=== PATIENT | male | born 1980 | race Caucasian/White ===

== ENCOUNTER 2016-11-09 03:43 | Inpatient (IN) | payer SELFPAY ==
[~2016-11-09] VITALS: Ht 180.3 cm; Wt 107.3 kg
[2016-11-09] MEDS ORDERED: METOCLOPRAMIDE INJ 10MG/2ML VIAL (J2765) IV ONE (06:30)
[2016-11-09] MEDS ORDERED: NS 1,000 ML IV ONE ×2 (06:30→11:00)
[2016-11-09] MEDS ORDERED: HYDROmorphone HCL 1 MG/ML SYRINGE (J1170) IV ONE (06:30)
[2016-11-09 07:30] LABS: ADD MANUAL DIFFER YES; MEAN CORPUSCULAR HEMOGLOBIN 31.3 pg (27.0-33.0); MEAN CORPUSCULAR HGB CONC 35.9 g/dl (32.0-36.5); MEAN CORPUSCULAR VOLUME 87.1 fl (80.0-96.0); PLATELET COUNT, AUTOMATED 208 k/mm3 (150-450); RED CELL DISTRIBUTION WIDTH 11.9 % (11.5-14.5); WHITE BLOOD COUNT 12.7 K/mm3 (4.0-10.0)
[2016-11-09] MEDS ORDERED: ISOVUE-370 76% 100ML VIAL (Q9967) As Ordered ONE (07:45)
[2016-11-09 07:54] LABS: BANDS 7 % (< 11)
[2016-11-09] MEDS ORDERED: GASTROGRAFIN SOLUTION 30ML PO ONE (08:00)
[2016-11-09] MEDS ORDERED: GASTROGRAFIN SOLUTION 30ML (Q9963) As Ordered ONE (08:00)
[2016-11-09 08:08] LABS: ALBUMIN 3.9 GM/DL (3.2-5.2); ALKALINE PHOSPHATASE 56 U/L (45-117); ALT/SGPT 40 U/L (12-78); AMYLASE 48 U/L (25-115); ANION GAP 9 MEQ/L (8-16); AST/SGOT 18 U/L (15-37); BILIRUBIN,DIRECT 0.2 MG/DL (0.0-0.2); BILIRUBIN,TOTAL 0.7 MG/DL (0.2-1.0); BLOOD UREA NITROGEN 12 MG/DL (7-18); CALCIUM LEVEL 8.3 MG/DL (8.5-10.1); CARBON DIOXIDE LEVEL 25 MEQ/L (21-32); CHLORIDE LEVEL 107 MEQ/L (98-107); GLOMERULAR FILTRATION RATE > 60.0 (>60); GLUCOSE, FASTING 108 MG/DL (70-105); POTASSIUM SERUM 4.3 MEQ/L (3.5-5.1); SODIUM LEVEL 141 MEQ/L (136-145); TOTAL PROTEIN 6.9 GM/DL (6.4-8.2)
[2016-11-09] MEDS ORDERED: GASTROGRAFIN SOLUTION 30ML (Q9963) PO ONE (08:30)
--- NOTE | 2016-11-09 10:09 | REP ---
Clinical: Acute abdominal pain. Technique: Axial contrast enhanced images from the lung bases to the pubic symphysis using oral and 100 ml Isovue 370 intravenous contrast material with coronal and sagittal re-formations. Findings: Lung bases are clear. Visualized heart and pericardium normal. Liver, spleen, pancreas, gallbladder, bilateral adrenal glands and kidneys are normal. The enteric system is without obstruction or acute inflammatory process. Normal terminal ileum and appendix identified in the right lower quadrant pelvis demonstrates sigmoid diverticula without acute diverticulitis, normal bladder and age appropriate prostate/seminal vesicles. A minuscule amount of free fluid is identified in the left som pelvis of uncertain etiology. No free air. No adenopathy. No mass lesion. Vasculature is normal. Musculoskeletal structures are intact and without focal abnormality. Impression: 1. A minuscule amount of free fluid in the pelvis is nonspecific and of uncertain etiology. No further acute abdominopelvic pathology appreciated. 2. Scattered sigmoid diverticula without obvious acute diverticulitis. Signed by Rashi Cutler MD 11/09/2016 10:01 A
[2016-11-09] MEDS ORDERED: MORPHINE 4 MG/ML 1ML SYRINGE IV ONE (11:00)
[2016-11-09] MEDS ORDERED: metroNIDAZOLE 500 MG in APPROPRIATE DILUENT 1 EA IV ONE (11:45)
[2016-11-09] MEDS ORDERED: CIPROFLOXACIN 400 MG in APPROPRIATE DILUENT 1 EA IV ONE (11:45)
[2016-11-09] MEDS ORDERED: VANCOMYCIN ORAL SOL 250MG/5ML ORAL SYRINGE PO SCH (12:00)
[2016-11-09] MEDS ORDERED: ACETAMINOPHEN TAB 650MG DOSE (2X325MG) PO PRN (13:30)
[2016-11-09] MEDS ORDERED: MORPHINE 2 MG/ML 1ML SYRINGE IV PRN (13:30)
[2016-11-09] MEDS ORDERED: ONDANSETRON 4MG/2ML VIAL (J2405) IV PRN (13:30)
[2016-11-09] MEDS ORDERED: metroNIDAZOLE 500 MG in APPROPRIATE DILUENT 1 EA IV SCH (13:45)
[2016-11-09] MEDS: NS 1,000 ML IV SCH (14:00)
[2016-11-09 15:00] VITALS: BP 110/62
[2016-11-09] MEDS: VANCOMYCIN ORAL SOL 250MG/5ML ORAL SYRINGE PO SCH (17:18)
[2016-11-09] MEDS: LACTOBACILLUS ACIDOPHILUS CAP (BACID) PO SCH (17:18)
[2016-11-09] MEDS: PANTOPRAZOLE 40MG INJ (PROTONIX) (C9113) IV SCH (17:18)
--- NOTE | 2016-11-09 17:48 | HPE ---
DATE OF ADMISSION: 11/09/2016 PRIMARY CARE PROVIDER: None. HISTORY OF PRESENT ILLNESS: This patient is a 36-year-old male who presents to [facility] on 11/09/2016, with worsening abdominal pain. The patient stated since three days ago the pain start bilateral lower abdomen. It is sharp, aching, and he described the pain is more like "stomach full of gas." pain has been persistent and torso flexion makes the pain worse. Nothing makes it better. In the last three days, the patient's pain started to improve slowly. However, today around 3 a.m., while the patient was sleeping, there was acute sudden onset of similar pain recurring in the epigastric region with radiation to the whole abdomen. The pain has remained persistently sharp with migration to different part of abdomen. The patient also noted to have watery diarrhea for the past three days, on average he has been having 3-6 bowel movements every day. At the baseline, the patient has at most four bowel movements daily. Denies any blood in the stool. The patient did noted he had lightheadedness. Denies any chest pain or shortness of breath. Denies any new medication changes. PAST MEDICAL HISTORY: 1. History of mitral valve prolapse, resolved. 2. Hypercholesterolemia. 3. Herniated disc L3 to L5 resulting in chronic back pain. PAST SURGICAL HISTORY: Left ankle repair. ALLERGIES: None. HOME MEDICATIONS: None. SOCIAL HISTORY: The patient denies smoking tobacco, but he chews tobacco for the past two years. During the weekend, he drinks more than a six pack daily. During the weekdays, he drinks at the most one beer a day. Denies any recreational drug use currently, but seven years ago he had been trying different types of recreational drugs. REVIEW OF SYSTEMS: GENERAL: No fever, no chills. HEENT: No vision changes, no auditory changes. CARDIOVASCULAR: No chest pain, no palpitations. RESPIRATORY: No shortness of breath. No cough, no sputum production. GASTROINTESTINAL (GI): Positive abdominal pain started three days ago, sharp and achy. Has been persistent. Positive diarrhea with blood in the stool. Denied any nausea or vomiting. MUSCULOSKELETAL: Chronic herniated disc from L3 to L5. NEUROLOGIC: No numbness, no tingling. PHYSICAL EXAMINATION: VITAL SIGNS: Temperature is 98.2, pulse 55, respirations 18, blood pressure 127/65, pulse 99% on room air. GENERAL: No sign of acute distress. Fatigued, alert and oriented times three. HEENT: Normocephalic, atraumatic. Extraocular motor grossly intact. CARDIOVASCULAR: Positive S1, S2. Regular rate. LUNGS: Clear to auscultation bilaterally. ABDOMEN: Tenderness to palpitation in all abdominal quadrants, most significant in the epigastric region at the time of examination. Abdomen is soft. Bowel sounds present. EXTREMITIES: No edema. No sign of cyanosis. LABORATORY DATA: WBC 12.7, hemoglobin 16.9, hematocrit 47.1, platelet count 208. Sodium is 141. Potassium 4.3, chloride 107, carbon dioxide 25, BUN 12, creatinine 0.8, GFR greater than 60, fasting glucose 108, lactic acid 0.8. Calcium 8.3. Total bilirubin 0.7, direct bilirubin 0.2, AST 18, ALT 40, alkaline phosphatase 56, total protein 6.9, albumin 3.9, amylase 48, lipase 86. MICROBIOLOGY: GI panel showed positive for Clostridium (C.) difficile. Urine culture is pending. IMAGING: CT abdomen and pelvis with intravenous (IV) and oral contrast shows miniscule amount of free fluid in the pelvis, nonspecific and of uncertain etiology. No further abdominal/pelvic pathology appreciated. Scattered sigmoid diverticula without obvious acute diverticulitis. ASSESSMENT AND PLAN: 1. Clostridium (C.) difficile colitis. The patient admitted to the medical/surgical floor under contact precautions. The patient will be inpatient status. The patient is started on oral vancomycin. 2. History of hypercholesterolemia. Follow with lipid panel tomorrow. The patient is not on any cholesterol medications. 3. History of mitral valve prolapse at a young age. Per patient, the patient had repeat checkup several days later, and he was told that mitral valve prolapse resolved. 4. Deep venous thrombosis (DVT) prophylaxis. The patient is on heparin.
[2016-11-09 20:00] VITALS: BP 114/60
[2016-11-09] MEDS: HEPARIN SOD (PORCINE) 5000 UNITS/ML VIAL SC SCH (22:23)
[2016-11-09] MEDS: PERCOCET 5MG/325MG TAB PO PRN (22:24)
[2016-11-10] VITALS: BP 114/59
[2016-11-10] MEDS ORDERED: CIPROFLOXACIN 400 MG in APPROPRIATE DILUENT 1 EA IV SCH ×2
[2016-11-10] MEDS: VANCOMYCIN ORAL SOL 250MG/5ML ORAL SYRINGE PO SCH ×4 (00:35→18:29)
[2016-11-10] MEDS: NS 1,000 ML IV SCH (02:30)
[2016-11-10] MEDS: HEPARIN SOD (PORCINE) 5000 UNITS/ML VIAL SC SCH ×3 (05:48→22:58)
[2016-11-10] MEDS: PERCOCET 5MG/325MG TAB PO PRN (05:48)
[2016-11-10 07:07] LABS: MEAN CORPUSCULAR HEMOGLOBIN 30.2 pg (27.0-33.0); MEAN CORPUSCULAR HGB CONC 34.2 g/dl (32.0-36.5); MEAN CORPUSCULAR VOLUME 88.3 fl (80.0-96.0); RED CELL DISTRIBUTION WIDTH 12.3 % (11.5-14.5); WHITE BLOOD COUNT 6.4 K/mm3 (4.0-10.0)
[2016-11-10 07:23] LABS: ANION GAP 9 MEQ/L (8-16); BLOOD UREA NITROGEN 8 MG/DL (7-18); CALCIUM LEVEL 8.1 MG/DL (8.5-10.1); CARBON DIOXIDE LEVEL 24 MEQ/L (21-32); CHLORIDE LEVEL 109 MEQ/L (98-107); CHOLESTEROL LEVEL 152 MG/DL (<200); CREATININE FOR GFR 0.76 MG/DL (0.70-1.30); GLOMERULAR FILTRATION RATE > 60.0 (>60); GLUCOSE, FASTING 92 MG/DL (70-105); POTASSIUM SERUM 4.1 MEQ/L (3.5-5.1); SODIUM LEVEL 142 MEQ/L (136-145); TRIGLYCERIDES LEVEL 60 MG/DL (<150)
[2016-11-10 08:00] VITALS: BP 149/75
[2016-11-10] MEDS: LACTOBACILLUS ACIDOPHILUS CAP (BACID) PO SCH ×3 (08:13→18:29)
--- NOTE | 2016-11-10 15:51 | IPN ---
DATE: 11/10/2016 SUBJECTIVE: The patient is seen and examined in the room today. The patient stated his abdominal pain still persists, but the intensity and severity have been improving. The patient tolerated oral well. No other complaints. Yesterday afternoon, the patient had a temperature of 100.6. Since then no recurrence of fever. OBJECTIVE: VITAL SIGNS: Temperature is 97.9, pulse is 65, respirations 18, blood pressure 149/75, pulse oximetry 100% on room air. GENERAL: No sign of acute distress. Alert and oriented times three. HEENT: Normocephalic, atraumatic. Extraocular motor grossly intact. CARDIOVASCULAR: Positive S1, S2. Regular rate. LUNGS: Clear to auscultation bilaterally. ABDOMEN: lines tender to palpation in the abdomen. Abdomen is soft. Bowel sounds present. EXTREMITIES: No edema, no sign of cyanosis. LABORATORY DATA: WBC is 6.4, hemoglobin 13.4, hematocrit 39.1, platelet count is 175. Sodium is 142, potassium 4.1, chloride 109, carbon dioxide 24, BUN eight, creatinine 0.76, GFR greater than 60, fasting glucose 92, calcium 8.1, C-reactive protein is 12.4. Triglycerides 60, total cholesterol 152, LDL 88, HDL is 52. MICROBIOLOGY: GI panel is positive for Clostridium (C.) difficile. ASSESSMENT AND PLAN: 1. Clostridium (C.) difficile colitis. The patient placed on oral vancomycin. Fever improved. Tolerated oral well. Will advance the diet as tolerated. Will discontinue intravenous (IV) fluid. 2. History of hypercholesterolemia. Lipid profile was performed and it came back negative. The patient was not taking any cholesterol medication at home. 3. History of herniated disc from L3 to L5, resulting in chronic back pain. 4. History of mitral valve prolapse, resolved. 5. Deep venous thrombosis (DVT) prophylaxis on heparin.
[2016-11-10 16:00] VITALS: BP 143/68
[2016-11-10] MEDS: PANTOPRAZOLE 40MG INJ (PROTONIX) (C9113) IV SCH (18:28)
[2016-11-10 20:00] VITALS: BP 142/79
[2016-11-11] VITALS: BP 141/94
[2016-11-11] MEDS: VANCOMYCIN ORAL SOL 250MG/5ML ORAL SYRINGE PO SCH ×2 (00:37→06:07)
[2016-11-11] MEDS: HEPARIN SOD (PORCINE) 5000 UNITS/ML VIAL SC SCH (06:06)
[2016-11-11 07:19] LABS: MEAN CORPUSCULAR HEMOGLOBIN 29.9 pg (27.0-33.0); MEAN CORPUSCULAR HGB CONC 34.2 g/dl (32.0-36.5); MEAN CORPUSCULAR VOLUME 87.5 fl (80.0-96.0); RED CELL DISTRIBUTION WIDTH 12.2 % (11.5-14.5); WHITE BLOOD COUNT 4.8 K/mm3 (4.0-10.0)
[2016-11-11 07:29] LABS: ANION GAP 6 MEQ/L (8-16); BLOOD UREA NITROGEN 10 MG/DL (7-18); CALCIUM LEVEL 8.2 MG/DL (8.5-10.1); CARBON DIOXIDE LEVEL 27 MEQ/L (21-32); CHLORIDE LEVEL 108 MEQ/L (98-107); CREATININE FOR GFR 0.81 MG/DL (0.70-1.30); GLOMERULAR FILTRATION RATE > 60.0 (>60); GLUCOSE, FASTING 95 MG/DL (70-105); POTASSIUM SERUM 4.6 MEQ/L (3.5-5.1); SODIUM LEVEL 141 MEQ/L (136-145)
[2016-11-11 08:00] VITALS: BP 131/83
[2016-11-11] MEDS: LACTOBACILLUS ACIDOPHILUS CAP (BACID) PO SCH (08:21)
[2016-11-11] MEDS ORDERED: VANC1CAP6 PO (09:18)
[2016-11-11] MEDS ORDERED: BACITAB PO (09:18)
--- NOTE | 2016-11-11 13:58 | DSES ---
DATE OF ADMISSION: 11/09/2016 DATE OF DISCHARGE: 11/11/2016 PRIMARY CARE PROVIDER: None. CONSULTATIONS: None. PROCEDURES: None. COMPLICATIONS: None. DISCHARGE DIAGNOSES: 1. C difficile colitis. 2. History of hypercholesterolemia. 3. History of herniated discs from L3 to L5 resulting in chronic back pain. 4. History of mitral valve prolapse, resolved. HOSPITAL COURSE: The patient is a 36-year-old male who presented to on 11/09/2016 with worsening abdominal pain. GI panel was initiated. The patient was started on IV support. The patient was given empiric antibiotics of Cipro and Flagyl in the emergency room. Later the patient's GI panel came back positive for Clostridium difficile. At that time, the patient also had a temperature of 100.6 and the antibiotic regimen was switched to by mouth vancomycin. With oral antibiotics, the patient's symptoms showed continued improvement. The patient does not have any recurrence of fevers. On 11/11/2016, the patient has soft formed stool and patient's abdominal pain showed almost complete resolution and the patient is determined medically stable for discharge with the recommendation that he establish with a primary care provider in 1-2 weeks. The patient is recommended to finish the whole course of by mouth vancomycin for his C difficile colitis. VITAL SIGNS: Temperature is 97.5, pulse 65, respiration 18, blood pressure 131/83, pulse ox 100% in room air. LABORATORY DATA: On the day of discharge: WBC 4.8, hemoglobin 14.4, hematocrit 42, platelet count 214. Sodium is 141, potassium 4.6, chloride 108, carbon dioxide 27, BUN 10, creatinine 0.81, GFR greater than 60, fasting glucose 95, calcium 8.2. Microbiology: Urine culture is still negative. GI Panel: Clostridium difficile. Imaging Studies: CT of the abdomen and pelvis with IV and oral contrast show miniscule amount of free fluid in the pelvis. This is nonspecific and of uncertain etiology. No further acute abdominal or pelvic pathology appreciated. Scattered sigmoid diverticula without obvious acute diverticulitis. DISCHARGE MEDICATION: - vancomycin 125 mg by mouth every 6 hours for 8 days - Bacid one tablet by mouth with meal and nightly for 10 days DISCHARGE INSTRUCTIONS: Discharged to home. Activity as tolerated. Diet as tolerated. The patient is recommended to establish with a primary care provider in 1-2 weeks. The patient is recommended to finish the course of oral vancomycin for his C difficile colitis. DISCHARGE CONDITION: Stable. Discharge time greater than 30 minutes.
== END 2016-11-11 10:35 | disposition home or self-care (01) | DRG 248 ==
LOC: M ED 03:43 → M ED INP 13:29 → M PED 15:15
PROVIDERS: ADMIT Internal Medicine; ATTEND Internal Medicine
DX: A04.7 Enterocolitis due to Clostridium difficile (principal); F17.220 Nicotine dependence, chewing tobacco, uncomplicated; M51.26 Other intervertebral disc displacement, lumbar region; K57.30 Diverticulosis of large intestine without perforation or abscess without bleeding

== ENCOUNTER 2017-12-23 16:35 | Emergency (ER) | payer BC, SELFPAY ==
[2017-12-23 18:08] LABS: BASO # 0.1 10^3/uL (0.0-0.2); BASO % 0.7 % (0.0-1.0); EOS # 0.1 10^3/uL (0.0-0.50); EOS % 1.7 % (0.0-3.0); HEMATOCRIT 47.8 % (42.0-52.0); HEMOGLOBIN 16.2 g/dl (13.5-17.5); IMMATURE GRANULOCYTE % 0.5 % (0-3.0); LYMPH # 1.8 10^3/uL (1.5-4.5); LYMPH % 23.9 % (24.0-44.0); MEAN CORPUSCULAR HEMOGLOBIN 29.7 pg (27.0-33.0); MEAN CORPUSCULAR HGB CONC 33.9 g/dl (32.0-36.5); MEAN CORPUSCULAR VOLUME 87.5 fl (80.0-96.0); MONO # 0.8 10^3/uL (0.0-0.8); MONO % 10.8 % (0.0-5.0); NEUTROPHILS # 4.8 10^3/uL (1.8-7.7); NEUTROPHILS % 62.4 % (36.0-66.0); PLATELET COUNT, AUTOMATED 237 10^3/uL (150-450); RED BLOOD COUNT 5.46 10^6/uL (4.30-6.10); RED CELL DISTRIBUTION WIDTH 12.2 % (11.5-14.5); WHITE BLOOD COUNT 7.7 10^3/uL (4.0-10.0)
[2017-12-23 18:11] LABS: AMORPHOUS SEDIMENT MODERATE (NEGATIVE); APPEARANCE, URINE HAZY (CLEAR); BACTERIA, URINE AUTO NEGATIVE (NEGATIVE); BILIRUBIN, URINE AUTO NEGATIVE (NEGATIVE); BLOOD, URINE BLOOD NEGATIVE (NEGATIVE); COLOR, URINE YELLOW (YELLOW); GLUCOSE, URINE (UA) AUTO NEGATIVE (NEGATIVE); KETONE, URINE AUTO NEGATIVE (NEGATIVE); LEUKOCYTE ESTERASE, URINE AUTO NEGATIVE (NEGATIVE); MUCUS, URINE SMALL (NEGATIVE); NITRITE, URINE AUTO NEGATIVE (NEGATIVE); PROTEIN, URINE AUTO NEGATIVE (NEGATIVE); RBC, URINE AUTO 1 /HPF (0-3); SPECIFIC GRAVITY URINE AUTO 1.014 (1.002-1.035); SQUAMOUS EPITHELIAL CELL UR AU 0 /HPF (0-6); UROBILINOGEN, URINE AUTO 0.2 mg/dL (0.0-2.0); WBC, URINE AUTO 1 /HPF (0-3)
[2017-12-23] MEDS: DICYCLOMINE 10 MG CAP PO (18:30)
[2017-12-23] MEDS: NS 1,000 ML IV (18:30)
[2017-12-23] MEDS: GASTROGRAFIN SOLUTION 30ML PO ×2 (18:30→18:40)
[2017-12-23 18:40] LABS: ALBUMIN/GLOBULIN RATIO 1.11 (1.00-1.93); ALKALINE PHOSPHATASE 71 U/L (45-117); ALT/SGPT 61 U/L (12-78); ANION GAP 7 MEQ/L (8-16); AST/SGOT 20 U/L (7-37); BILIRUBIN,TOTAL 0.4 MG/DL (0.2-1.0); BLOOD UREA NITROGEN 14 MG/DL (7-18); C REACTIVE PROTEIN QUANTITATIV < 0.30 MG/DL (0.00-0.30); CALCIUM LEVEL 8.5 MG/DL (8.5-10.1); CARBON DIOXIDE LEVEL 27 MEQ/L (21-32); CHLORIDE LEVEL 105 MEQ/L (98-107); CREATININE FOR GFR 0.81 MG/DL (0.70-1.30); GLOMERULAR FILTRATION RATE > 60.0 (>60); GLUCOSE, FASTING 83 MG/DL (70-100); LIPASE 104 U/L (73-393); POTASSIUM SERUM 4.1 MEQ/L (3.5-5.1); SODIUM LEVEL 139 MEQ/L (136-145); TOTAL PROTEIN 7.6 GM/DL (6.4-8.2)
[2017-12-23] MEDS ORDERED: ISOVUE-370 76% 100ML VIAL (Q9967) As Ordered (19:54)
== END 2017-12-23 20:47 | disposition home or self-care (01) ==
LOC: M ED 16:35
DX: K64.8 Other hemorrhoids (principal); K92.1 Melena; R10.30 Lower abdominal pain, unspecified; K57.30 Diverticulosis of large intestine without perforation or abscess without bleeding; Z86.19 Personal history of other infectious and parasitic diseases; I10 Essential (primary) hypertension; Z88.5 Allergy status to narcotic agent; Z79.899 Other long term (current) drug therapy
CPT/HCPCS: Q9963

== ENCOUNTER → 2020-07-12 | Outpatient (CLI) | payer BC, SELFPAY ==
[~2020-07-12] MED LIST: ACET650T61 PO; BACITAB PO; BENT10CA PO; CYCL5TAB; GABA-845 PO; HYDR30SU PR; VANC1CAP6 PO; ZOFR4TAB14 PO
== END ==
LOC: M LABSMTC 09:47
PROVIDERS: ATTEND Anesthesiology
DX: Z01.812 Encounter for preprocedural laboratory examination (principal); Z20.822 Contact with and (suspected) exposure to COVID-19

== ENCOUNTER 2020-07-17 07:11 | Day surgery (SDC) | payer OTHER ==
[~2020-07-17] VITALS: Ht 180.3 cm; Wt 109.0 kg
[~2020-07-17 07:11] MED LIST changes: +GABA-283 PO; -GABA-845 PO; +NS 1,000 ML IV ONE
[2020-07-17] MEDS ORDERED: fentaNYL 100 MCG/2 ML INJECTION (J3010) As Ordered ONE (07:29)
[2020-07-17] MEDS ORDERED: propofoL 200 MG/20 ML VIAL As Ordered ONE (07:29)
[2020-07-17] MEDS ORDERED: LIDOCAINE 2% MDV 20ML VIAL As Ordered ONE (07:29)
--- NOTE | 2020-07-17 07:45 | ROOR ---
Patient Name: Clifford Levine Procedure Date: 07/17/2020 7:30 AM Date of : 1980 Age: 39 Room: [facility] Gender: Male Note Status: Finalized Procedure: Upper Endoscopy + Biopsies Indications: Abdominal pain in the left lower quadrant, Heartburn, Exclusion of Berger's esophagus Providers: Carlos Iverson MD Referring MD: SANTOSH SEWELL DO Requesting Provider: Medicines: Monitored Anesthesia Care Complications: No immediate complications. Procedure: Pre-Anesthesia Assessment: - The heart rate, respiratory rate, oxygen saturations, blood pressure, adequacy of pulmonary ventilation, and response to care were monitored throughout the procedure. The Endoscope was introduced through the mouth, and advanced to the second part of duodenum. The upper GI endoscopy was accomplished without difficulty. The patient tolerated the procedure well. Findings: The Z-line was variable and was found 40 cm from the incisors. Multiple biopsies were obtained with cold forceps for evaluation to rule out Berger's Esophagus randomly at the gastroesophageal junction. Localized mild inflammation characterized by erosions was found on the greater curvature of the stomach. Biopsies were taken with a cold forceps for Helicobacter pylori testing. The exam of the duodenum was otherwise normal. Impression: - Z-line variable, 40 cm from the incisors. - Mucosal changes suspicious for gastritis. Biopsied. - Multiple biopsies were obtained at the gastroesophageal junction. - The examination was otherwise normal. Recommendation: - Patient has a contact number available for emergencies. The signs and symptoms of potential delayed complications were discussed with the patient. Return to normal activities tomorrow. Written discharge instructions were provided to the patient. - High fiber diet. - Discharge patient to home. - Continue present medications. - Await pathology results. - Telephone GI clinic for pathology results in 1 week. - Return to referring physician. - The findings and recommendations were discussed with the patient. Procedure Code(s): --- Professional --- 92781, Esophagogastroduodenoscopy, flexible, transoral; with biopsy, single or multiple Diagnosis Code(s): --- Professional --- K22.8, Other specified diseases of esophagus K31.89, Other diseases of stomach and duodenum R10.32, Left lower quadrant pain R12, Heartburn CPT copyright 2019 [employer]. All rights reserved. The codes documented in this report are preliminary and upon sternman review may be revised to meet current compliance requirements. Carlos Iverson MD Carlos Iverson MD 07/17/2020 7:44:45 AM Electronically signed by Carlos Iverson MD Number of Addenda: 0 Note Initiated On: 07/17/2020 7:30 AM Estimated Blood Loss: Estimated blood loss: none.
--- NOTE | 2020-07-17 07:59 | ROOR ---
Patient Name: Clifford Levine Procedure Date: 07/17/2020 7:30 AM Date of : 1980 Age: 39 Room: [facility] Gender: Male Note Status: Finalized Procedure: Total Colonoscopy to Cecum + ileoscopy + Bx Indications: Abdominal pain in the left lower quadrant Providers: Carlos Iverson MD Referring MD: SANTOSH SWEELL DO Requesting Provider: Medicines: Monitored Anesthesia Care Complications: No immediate complications. Procedure: Pre-Anesthesia Assessment: - The heart rate, respiratory rate, oxygen saturations, blood pressure, adequacy of pulmonary ventilation, and response to care were monitored throughout the procedure. The Colonoscope was introduced through the anus and advanced to the cecum, identified by appendiceal orifice and ileocecal valve. The colonoscopy was performed without difficulty. The patient tolerated the procedure well. The quality of the bowel preparation was excellent. Findings: The perianal and digital rectal examinations were normal. Non-bleeding internal hemorrhoids were found during retroflexion. The hemorrhoids were small and Grade I (internal hemorrhoids that do not prolapse). A diminutive polyp was found at 20 cm proximal to the anus. The polyp was sessile. The polyp was removed with a cold biopsy forceps. Resection and retrieval were complete. The exam was otherwise without abnormality on direct and retroflexion views. The terminal ileum appeared normal. The exam was otherwise without abnormality. Impression: - Non-bleeding internal hemorrhoids. - One diminutive polyp at 20 cm proximal to the anus, removed with a cold biopsy forceps. Resected and retrieved. - The examination was otherwise normal on direct and retroflexion views. - The examined portion of the ileum was normal. - The examination was otherwise normal. - The exam was otherwise normal to the cecum. Recommendation: - Patient has a contact number available for emergencies. The signs and symptoms of potential delayed complications were discussed with the patient. Return to normal activities tomorrow. Written discharge instructions were provided to the patient. - High fiber diet. - Discharge patient to home. - Continue present medications. - Await pathology results. - Telephone GI clinic for pathology results in 1 week. - Repeat colonoscopy in 10 years for screening purposes. - Return to referring physician. - The findings and recommendations were discussed with the patient's family. Procedure Code(s): --- Professional --- 36324, Colonoscopy, flexible; with biopsy, single or multiple Diagnosis Code(s): --- Professional --- K64.0, First degree hemorrhoids K63.5, Polyp of colon R10.32, Left lower quadrant pain CPT copyright 2019 [employer]. All rights reserved. The codes documented in this report are preliminary and upon physician coder review may be revised to meet current compliance requirements. Carlos Iverson MD Carlos Iverson MD 07/17/2020 7:58:49 AM Electronically signed by Carlos Iverson MD Number of Addenda: 0 Note Initiated On: 07/17/2020 7:30 AM Estimated Blood Loss: Estimated blood loss: none.
[2020-07-17 08:15] VITALS: BP 145/75
== END 2020-07-17 08:26 | disposition home or self-care (01) ==
LOC: M OPP 07:11
PROVIDERS: ATTEND Internal Medicine Gastroenterology
DX: K63.5 Polyp of colon (principal); K64.0 First degree hemorrhoids; R10.32 Left lower quadrant pain; K22.8 Other specified diseases of esophagus; K31.89 Other diseases of stomach and duodenum; R12 Heartburn; F17.220 Nicotine dependence, chewing tobacco, uncomplicated; Z79.899 Other long term (current) drug therapy; Z88.5 Allergy status to narcotic agent
CPT/HCPCS: 43239; 45380; 88305; J3010

== ENCOUNTER 2021-10-15 16:49 | Emergency (ER) | payer OTHER ==
[~2021-10-15] VITALS: Ht 180.3 cm; Wt 109.5 kg
[~2021-10-15 16:49] MED LIST changes: -NS 1,000 ML IV ONE
[2021-10-15 20:17] VITALS: BP 175/100
[2021-10-15] MEDS ORDERED: AMOX875T PO (22:51)
[2021-10-15] MEDS ORDERED: AMOXICILLIN 875 MG TAB PO ONE (23:00)
[2021-10-15] MEDS ORDERED: AMOXICILLIN 500 MG CAP PO ONE (23:00)
== END 2021-10-15 23:20 | disposition home or self-care (01) ==
LOC: M ED 16:49
DX: J02.9 Acute pharyngitis, unspecified (principal); H66.90 Otitis media, unspecified, unspecified ear; I10 Essential (primary) hypertension; Z88.5 Allergy status to narcotic agent

== ENCOUNTER 2023-04-11 17:04 | Emergency (ER) | payer OTHER ==
[~2023-04-11] VITALS: Ht 180.3 cm; Wt 111.6 kg
[~2023-04-11 17:04] MED LIST changes: +AMOX875T PO; -GABA-283 PO; +GABA-284 PO
[2023-04-11] MEDS ORDERED: IBUP-1022 PO (18:45)
[2023-04-11 18:54] VITALS: BP 148/85; TEMP 96.1; O2SAT 98
[2023-04-11 22:20] LABS: CHLAMYDIA DNA AMPLIFICATION NEGATIVE (NEGATIVE); GC DNA AMPLIFICATION NEGATIVE (NEGATIVE)
== END 2023-04-11 18:55 | disposition home or self-care (01) ==
LOC: M ED 17:04
DX: S76.811A Strain of other specified muscles, fascia and tendons at thigh level, right thigh, initial encounter (principal); X58.XXXA Exposure to other specified factors, initial encounter; Y92.9 Unspecified place or not applicable; Y93.9 Activity, unspecified; Y99.9 Unspecified external cause status; I10 Essential (primary) hypertension; E78.00 Pure hypercholesterolemia, unspecified; Z79.899 Other long term (current) drug therapy; Z88.5 Allergy status to narcotic agent

== ENCOUNTER 2023-12-31 07:39 | Emergency (ER) | payer OTHER ==
[~2023-12-31] VITALS: Ht 180.3 cm; Wt 105.6 kg
[~2023-12-31 07:39] MED LIST changes: +IBUP-1022 PO
[2023-12-31 07:44] VITALS: TEMP 96.9
[2023-12-31] MEDS: diazePAM 5MG TABLET PO ONE (11:13)
[2023-12-31] MEDS: KETOROLAC 30 MG/ML 1ML VIAL IV ONE (11:13)
[2023-12-31] MEDS: PERCOCET 5MG/325MG TAB PO ONE (13:10)
[2023-12-31] MEDS ORDERED: METH-1164 PO (13:54)
[2023-12-31] MEDS ORDERED: PERC5TAB12 PO (13:54)
[2023-12-31 14:00] VITALS: BP 142/82; O2SAT 95
[2023-12-31] MEDS ORDERED: GABA-1172 PO (14:00)
== END 2023-12-31 14:20 | disposition home or self-care (01) ==
LOC: M ED 07:39
DX: M51.360 Other intervertebral disc degeneration, lumbar region with discogenic back pain only (principal); Z88.5 Allergy status to narcotic agent; Z79.899 Other long term (current) drug therapy
CPT/HCPCS: 36415; 72148; 80047; 96374; 99284; J1885